=== PATIENT | male | born 1945 ===

== ENCOUNTER → 2018-04-13 08:23 | Day surgery (SDC) | payer OTHER ==
[~2018-04-13 08:23] MED LIST: Buffered Lidocaine 0.9% SYRIN* 5 ML/SYR SYRINGE INTRADERM ONE; Bupivacaine 0.25% W/EPI* 10 ML SDV ONE; Bupivacaine 0.5% W/EPI SDV* 30 ML VIAL ONE; Glycopyrrolate IV* 0.2 MG/ML 1 ML VIAL ONE; Ketorolac INJ* 30 MG/ML 1 ML VIAL ONE; Lactated Ringers 1000 ML Bag* 1,000 ML IV SCH; Lidocaine 1% INJ* 10 MG/ML 30 ML SDV ONE; Lidocaine 2% PF * 5 ML VIAL ONE; Midazolam* 1 MG/ML 2 ML VIAL (2 MG) ONE; Naloxone* 0.4 MG/ML 1 ML VIAL IV PRN; Ondansetron INJ* 2 MG/ML VIAL IV PRN; Propofol* 10 MG/ML 20 ML BTL ONE; ceFAZolin 2 GM PREMIX in ORs 2 GM/50 ML BAG IVPB ONE; fentaNYL* 50 MCG/ML 2 ML VIAL (100 MCG VIAL) IV PRN; fentaNYL* 50 MCG/ML 2 ML VIAL (100 MCG VIAL) ONE
[2018-04-13 11:42] VITALS: BP 115/84
--- NOTE | 2018-04-13 16:33 | OP ---
CC: Dr. Ravin Veras; Dr. Guajardo* OPERATIVE REPORT: DATE OF OPERATION: 04/13/18 - [facility] DATE OF : 45 SURGEON: Ravin Veras MD CHIEF SALES OFFICER: None. ANESTHESIOLOGIST: Dr. De León. ANESTHESIA: LMAC anesthesia. PRE-OP DIAGNOSIS: Right inguinal hernia. POST-OP DIAGNOSIS: Right inguinal hernia. OPERATIVE PROCEDURE: Open repair right inguinal hernia with mesh. DESCRIPTION OF PROCEDURE: The patient was spine on the operating room table. After adequate intravenous sedation, compression stockings, Jose Hugger warmer, and intravenous antibiotics, the right groin was clipped and prepped with antiseptic and draped in a sterile fashion. Local infiltrative anesthesia was administered in the right groin. Approximately a 7-cm incision was created and carried down through the tissue layers. The external oblique was opened in the direction of its fibers. Cord structures were encircled with a [place] drain. There was a moderately large indirect space hernia which was dissected free and reduced. There was a little lipoma in the cord which was also reduced. A cone mesh plug was placed into the internal ring, sutured there with 2-0 Vicryl. A second piece of mesh was placed over the inguinal floor, this was sutured at the tubercle and at the inguinal ligament. The tails were split, brought around the cord structures, and tacked down laterally. External oblique was closed over top with 2-0 Vicryl, Wesly's with 3-0 Vicryl, and skin with 4-0 Prolene followed by a sterile dressing. He tolerated the procedure well, was awakened and brought to Recovery in good condition. There were no complications , no drains, no pathologic specimens. Sponge and instrument counts correct. ESTIMATED BLOOD LOSS: 10 mL. [id number] #: [id number] MTDD
== END | disposition home or self-care (01) ==
LOC: OR 08:23
PROVIDERS: ATTEND Surgery
DX: K40.90 Unilateral inguinal hernia, without obstruction or gangrene, not specified as recurrent (principal); J30.89 Other allergic rhinitis; F32.9 Major depressive disorder, single episode, unspecified; M41.9 Scoliosis, unspecified
CPT/HCPCS: C1781; J0690; J1885; J2250; J2704; J3010

== ENCOUNTER 2018-06-25 16:45 | Emergency (ER) | payer OTHER ==
--- NOTE | 2018-06-25 17:56 | ED ---
Head Injury - HPI Summary HPI Summary: Patient is a 72 y/o male brought in by EMS accompanied by his and step- daughter who presents to the ED s/p fall. He was shoveling snow in his driveway when he tripped over shingles and fell and says he felt he hyperextended his left leg. Patient had LOC for about one minute, unwitnessed. He was light- headed when his found him. He hit the right side of his head and now has a hematoma. After falling he c/o dizziness, nausea, and blackened vision. As per EMS treatment, his nausea and dizziness have now resolved. However patient now c/o an acute headache rated a 3/10 in severity. FHx CAD, stroke. PMHx HLD, right inguinal hernia. NKDA. Right inguinal hernia surgery was done by Dr. Veras March 2017. Escitalopram * [Lexapro 10 mg (NF)] 10 mg PO DAILY 06/25/18 [History Confirmed 06/25/18] Methylphenidate ER TAB* [Concerta ER TAB*] 54 mg PO DAILY 06/25/18 [History Confirmed 06/25/18] Methylphenidate TAB* [Ritalin TAB*] 20 mg PO TID 06/25/18 [History Confirmed 02/03] buPROPion SR TAB* [Wellbutrin SR TAB*] 200 mg PO ONCE 06/25/18 [History Confirmed 06/25/18] - History Of Current Complaint Chief Complaint: EDHeadInjury Stated Complaint: "FALL" PER EMS Time Seen by Provider: 06/25/18 16:58 Hx Obtained From: Patient, EMS Mechanism Of Injury: Fall From A Standing Position Onset/Duration: Started Hours Ago - PIT BOSS, Traumatic, Still Present Severity Currently: Mild Pain Intensity: 3 Pain Scale Used: 0-10 Numeric Location of Head Injury: Frontal - right Character: Sharp - acute Associated Signs And Symptoms: LOC (Time In Secs./Mins/Hrs) - 1 minute, Nausea, Headache, Other: - Dizziness - Allergies/Home Medications Allergies/Adverse Reactions: Allergies Allergy/AdvReac Type Severity Reaction Status Date / Time No Known Allergies Allergy Verified 06/25/18 16:52 Home Medications: Home Medications Escitalopram * [Lexapro 10 mg (NF)] 10 mg PO DAILY 06/25/18 [History Confirmed 06/25/18] Methylphenidate ER TAB* [Concerta ER TAB*] 54 mg PO DAILY 06/25/18 [History Confirmed 06/25/18] Methylphenidate TAB* [Ritalin TAB*] 20 mg PO TID 06/25/18 [History Confirmed 02/03] buPROPion SR TAB* [Wellbutrin SR TAB*] 200 mg PO ONCE 06/25/18 [History Confirmed 06/25/18] PMH/Surg Hx/FS Hx/Imm Hx Endocrine/Hematology History: Denies: Hx Anticoagulant Therapy Cardiovascular History: Reports: Hx Hypercholesterolemia Denies: Hx Coronary Artery Disease Respiratory History: Denies: Hx Chronic Obstructive Pulmonary Disease (COPD) GI History: Reports: Other GI Disorders - [facility] Musculoskeletal History: Reports: Other Musculoskeletal History - SLIGHT SCOLOSIS FRACUTERED RIBS IN THE PAST 28 YEARS AGO Sensory History: Reports: Hx Cataracts - DEVELOPING, Hx Contacts or Glasses - GLASSES Denies: Hx Hearing Aid Opthamlomology History: Reports: Hx Cataracts - DEVELOPING, Hx Contacts or Glasses - GLASSES Psychiatric History: Reports: Hx Anxiety, Hx Depression - ON MEDICATION - Surgical History Surgery Procedure, Year, and Place: PINNING LEFT SHOULDER 28 YEARS AGO [facility] Hx Anesthesia Reactions: No Other Surgical History: Right inguinal hernia surgery March 2017. Infectious Disease History: No Infectious Disease History: Denies: Traveled Outside the [place] in Last 30 Days - Family History Known Family History: Positive: Cardiac Disease - CAD, Blood Disorder - Mother form at age 92. , Other - stroke Family History: Mother from "blood disorder" bone marrow at age 92. Father had Alzheimers and passed at age 85. - Social History Alcohol Use: Rare Hx Substance Use: No Substance Use Type: Reports: None Hx Tobacco Use: No Smoking Status (MU): Never Smoked Tobacco Have You Smoked in the Last Year: No Review of Systems Positive: Other - "blackened" vision Positive: Nausea Positive: Other - hematoma right frontal skull Neurological: Other - Dizziness, light-headed, LOC Positive: Headache - mild All Other Systems Reviewed And Are Negative: Yes Physical Exam - Summary Physical Exam Summary: Appearance: Well-appearing, moderate pain distress, well-nourished Skin: Warm, color reflects adequate perfusion, dry Head: Right frontal skull hematoma Eyes: Conjunctiva clear ENT: Normal inspection Neck: Supple, no nodes, no JVD Respiratory: Lungs clear, normal breath sounds, no respiratory distress Cardio: RRR, No murmur, pulses normal, brisk capillary refill Abdomen: Soft, nontender. No guarding, no rebound. Bowel sounds: Present Musculoskeletal: Strength Intact/ROM intact, no calf tenderness, no edema.Left 5th digit on his foot crossing over 4th digit. Psychological: Normal Neuro: Alert, muscle tone normal, no focal deficit : Cloud Infrastructure Architect Leena present. Uncircumcised male. Left testicle is larger than right testicle. Non-tender. No hernias bilaterally. GCS: 15 Triage Information Reviewed: Yes Vital Signs On Initial Exam: Initial Vitals Temp Pulse Resp BP Pulse Ox 98.9 F 97 18 136/79 98 06/25/18 16:49 06/25/18 16:49 06/25/18 16:49 06/25/18 16:49 06/25/18 16:49 Vital Signs Reviewed: Yes Diagnostics - Vital Signs Vital Signs Temp Pulse Resp BP Pulse Ox 06/25/18 16:49 98.9 F 97 18 136/79 98 - Laboratory Lab Statement: Any lab studies that have been ordered have been reviewed, and results considered in the medical decision making process. - Radiology Lumbar spine XR Radiology Interpretation Completed By: ED Physician Summary of Radiographic Findings: DLD, spondylosis L4, no acute fracture. Pending official radiologist report. Hip/Pelvis XR Radiology Interpretation Completed By: ED Physician Summary of Radiographic Findings: No obvious fracture in hip or pelvis. Awaiting official radiologist report. - CT Brain CT Interpretation Completed By: Radiologist Summary of CT Findings: 1. No intracranial bleed, suspicious mass, or mass effect. Ventricles appear unremarkable. 2. No skull fracture. ED Provider has reviewed this report. Cervical Spine CT Interpretation Completed By: Radiologist Summary of CT Findings: No cervical fractrue or sublaxation. ED Provider has reviewed this report. National Institutes Of Health - NIH Scale Level of Consciousness: Alert/Keenly Responsive Ask Patient the Month and His/Her Age: Both Correct Ask Pt to Open/Close Eyes and Self Pay Representative/Release Non-Paretic Hand: Both Correctly Best Gaze (Only Horizontal Eye Movement): Normal Visual Field Testing: No Visual Loss Facial Paresis-Pt to Smile & Close Eyes or Grimace Symmetry: Normal/Symmetrical Motor Function - Right Arm: No Drift-Holds 10 Seconds Motor Function - Left Arm: No Drift-Holds 10 Seconds Motor Function - Right Leg: No Drift-Holds 10 Seconds Motor Function - Left Leg: No Drift-Holds 10 Seconds Limb Ataxia-Must be out of Proportion to Weakness Present: Absent Sensory (Use Pinprick to Test Arms/Legs/Trunk/Face): Normal Best Language (Describe Picture, Name Items): No Aphasia Dysarthria (Read Several Words): Normal Extinction and Inattention: No Abnormality Total Score: 0 Re-Evaluation - Re-Evaluation First Eval Re-Evaluation Time: 20:03 Comment: XR results discussed with patient. Head Injury Course/Dx Course Of Treatment: Patient is a 72 y/o male brought in by EMS accompanied by his and step-daughter who presents to the ED s/p fall. Pt medications reviewed this visit. Nurses note reviewed. Allergies noted. Brain CT revealed 1. No intracranial bleed, suspicious mass, or mass effect. Ventricles appear unremarkable. 2. No skull fracture. Cervical Spine CT revealed no cervical fractrue or sublaxation. Lumbar Spine XR revealed DJD, spondylosis L4, no acute fracture. Hip/Pelvis XR revealed No obvious fracture in hip or pelvis. A plan for discharge was discussed with the patient and he was agreeable with this plan. - Diagnoses Provider Diagnoses: Concussion, Left hamstring muscle strain Discharge - Sign-Out/Discharge Documenting (check all that apply): Patient Departure - Discharge Patient Received Moderate/Deep Sedation with Procedure: No - Discharge Plan Condition: Stable Disposition: HOME Patient Education Materials: Hamstring Injury (ED), Head Injury (ED) Forms: *Work Release Referrals: Otilio Guajardo MD [Primary Care Provider] - Additional Instructions: Dr. Schafer believes you have a concussion. You have been advised not to exercised for 2 weeks until checked by Dr. Guajardo. - Attestation Statements Document Initiated by Scribe: Yes Documenting Scribe: Mariposa Sheridan Provider For Whom Scribe is Documenting (Include Credential): Polly Schafer MD Scribe Attestation: Mariposa Hahn, scribed for Polly Schafer MD on 06/25/18 at 2155.
[2018-06-25] MEDS ORDERED: Ibuprofen TAB* 600 MG PO ONE (19:00)
[2018-06-25 21:13] VITALS: BP 136/69
== END 2018-06-25 21:12 | disposition home or self-care (01) ==
LOC: ED 16:45
DX: S06.0X0A Concussion without loss of consciousness, initial encounter (principal); S76.312A Strain of muscle, fascia and tendon of the posterior muscle group at thigh level, left thigh, initial encounter; E78.00 Pure hypercholesterolemia, unspecified; F32.9 Major depressive disorder, single episode, unspecified; F41.9 Anxiety disorder, unspecified; W00.0XXA Fall on same level due to ice and snow, initial encounter; Y93.H1 Activity, digging, shoveling and raking; Y92.096 Garden or yard of other non-institutional residence as the place of occurrence of the external cause
CPT/HCPCS: 70450; 72110; 72125; 99283; A9270-GY